=== PATIENT | male | born 1940 | race Caucasian/White ===

== ENCOUNTER 2017-05-11 07:58 | Outpatient (CLI) | payer OTHER ==
[2017-05-11 08:57] LABS: eGFR (African) > 60; eGFR (Non-African) > 60
== END 2017-05-11 08:00 ==
LOC: LAB 07:58
PROVIDERS: ATTEND Family Medicine
DX: I10 Essential (primary) hypertension (principal); R73.9 Hyperglycemia, unspecified
CPT/HCPCS: 36415; 80053; 80061; 83036

== ENCOUNTER 2018-12-27 16:05 | Outpatient (CLI) | payer OTHER ==
--- NOTE | 2018-12-27 22:15 | Diagnostic Imaging Report ---
TISH KAHN [facility] [address] [facility].[address] [address] Report Submission Date: Dec 27, 2018 6:00:08 PM CDT Patient Study Name: GOVIND RIOS Date: Dec 27, 2018 4:08:07 PM CDT Modality Type: DX Gender: M Description: SHOULDER 2 VIEWS OR MORE : 44 Institution: [facility] Physician: TISH KAHN Right shoulder, 3 views HISTORY Shoulder pain, injury FINDINGS Degenerative change and spur formation are noted at the acromioclavicular glenohumeral joints. There is no acute fracture, dislocation or abnormal bone production or destruction. IMPRESSION Osteoarthritis but no acute abnormality. Electronically signed on Dec 27, 2018 6:00:08 PM CDT by: Soren KAT
== END 2018-12-27 16:07 ==
LOC: RAD 16:05
PROVIDERS: ATTEND Family Medicine
DX: M19.011 Primary osteoarthritis, right shoulder (principal); S49.91XA Unspecified injury of right shoulder and upper arm, initial encounter
CPT/HCPCS: 73030